=== PATIENT | male | born 1950 | race Caucasian/White ===

== ENCOUNTER → 2019-12-06 10:22 | Outpatient (BNVA) | payer MEDICARE, OTHER, SELFPAY | PROVIDERS: Referring Provider Student in an Organized Health Care Education/Training Program; Visit Provider Otolaryngology | DX: E04.1 Nontoxic single thyroid nodule (principal); F17.210 Nicotine dependence, cigarettes, uncomplicated | CPT/HCPCS: 99214 ==

== ENCOUNTER 2020-01-24 08:22 | Outpatient (CLI) | payer MEDICARE, OTHER, SELFPAY ==
[2020-01-24 09:05] LABS: INR 1.01 (0.8-1.2)
--- NOTE | 2020-01-24 10:00 | US_ITS ---
WS: [id number] INDICATION: Thyroid nodule TECHNIQUE: Ultrasound-guided right thyroid FNA FINDINGS: The procedure including risks benefits, and complications were discussed with the patient w ho agreed to proceed. Using sterile technique patient was prepped and draped in usual sterile fashion . After 1% lidocaine using ultrasound guidance 4 passes were made with active aspiration using 25-gau ge needle into the heterogeneous solid right thyroid nodule. No immediate complications. Patient left the department 30 minutes post in stable condition without evidence of hematoma on ultrasound. US/US biopsy thyroid [id number] IMPRESSION: Successful ultrasound-guided right thyroid nodule FNA
== END 2020-01-24 08:23 | disposition home or self-care (01) ==
PROVIDERS: Family Provider Student in an Organized Health Care Education/Training Program; PCP Student in an Organized Health Care Education/Training Program; Visit Provider Otolaryngology
DX: E04.1 Nontoxic single thyroid nodule (principal); Z79.82 Long term (current) use of aspirin; Z98.890 Other specified postprocedural states
CPT/HCPCS: 10005; 36415; 85610; 88173; 88305; 88307

== ENCOUNTER → 2020-06-19 08:23 | Outpatient (BNVA) | payer MEDICARE, OTHER, SELFPAY | PROVIDERS: Family Provider Student in an Organized Health Care Education/Training Program; PCP Student in an Organized Health Care Education/Training Program; Referring Provider Student in an Organized Health Care Education/Training Program; Visit Provider Specialist | DX: G56.01 Carpal tunnel syndrome, right upper limb (principal) | CPT/HCPCS: 95908 ==

== ENCOUNTER → 2020-09-07 10:07 | Outpatient (BNVA) | payer MEDICARE, OTHER, SELFPAY | PROVIDERS: Family Provider Student in an Organized Health Care Education/Training Program; PCP Student in an Organized Health Care Education/Training Program; Visit Provider Orthopaedic Surgery | DX: Z11.59 Encounter for screening for other viral diseases (principal) | CPT/HCPCS: 87635 ==

== ENCOUNTER 2020-09-13 08:21 | Day surgery (SDC) | payer MEDICARE, OTHER, SELFPAY ==
[2020-09-12 13:23] VITALS: BMI 25.0
[2020-09-13 08:37] VITALS: BP 163/84; PULSE 63; RESP 16; TEMP 36.6; O2SAT 97
[2020-09-13] MEDS: sodium chloride 0.9% 1,000 ML 30 ML IV (09:08)
--- NOTE | 2020-09-13 09:22 | ANES.PREANE2 ---
Pre-Anesthetic Assessment Pre-Anesthetic Assessment: Height/Weight: Height 1.65 m Weight 68.039 kg Temp Pulse Resp BP Pulse Ox 98 F 63 16 163/84 97 09/13/20 08:37 09/13/20 08:37 09/13/20 08:37 09/13/20 08:37 09/13/20 08:37 Preop Diagnosis: Right carpal tunnel syndrome Proposed Procedure: Operation Date: 09/13/20 10:00 Proposed Procedures p Right Carpal Tunnel Release 08457 G56.01(Right) - Dre Meneses MD Last intake: Intake Last Liquid Date 09/12/20 Last Liquid Time 20:30 Last Solid Date 09/12/20 Last Solid Time 18:30 Social: Social History: No alcohol and No tobacco Exam: Pre-Anes Outpt Exam: alert, oriented x 3, clear to auscultation bilaterally and regular rate & rhythm Airway: Submandibular: WNL Cervical ROM: WNL MP: 2 Pulmonary: Pulmonary: COPD CV/HEM: CV/HEM: CAD : : None reported Hepatic: Hepatic: None reported GI: GI: GERD Metabolic: Metabolic: None reported Musc/skel: Musc/skel: OA/DJD Neuropsych: Neuropsych: None reported Anesthetic Plan: ASA status: 3 Anesthesia: Eval. for regional block and MAC Meds/Allergies Current Medications: Current Medications Generic Name Dose Route Start Last Admin Trade Name Freq PRN Reason Stop Dose Admin Sodium Chloride 1,000 mls @ 30 ml s/hr 09/13/20 08:45 09/13/20 09:08 Sodium Chloride 0.9% IV 09/14/20 08:44 30 mls/hr .Q24H ELEAZAR Administration PFSH Anesthesia PFSH: Social History Smoking and tobacco status: current every day smoker Alcohol intake: never History of recent travel: No Data Anesthesia Cardiac Studies: No Data to Display
--- NOTE | 2020-09-13 09:48 | W.PM.OPSUD ---
Surgery/Procedure H&P Update DATE OF PROCEDURE: September 13, 2020 DATE H&P PERFORMED: 08/28/20 PREOP DIAGNOSIS: Right carpal tunnel syndrome PLANNED PROCEDURE: Operation Date: 09/13/20 10:00 Proposed Procedures p Right Carpal Tunnel Release [id number] G56.01(Right) - Dre Meneses MD
--- NOTE | 2020-09-13 10:42 | P.OP_ITS ---
Operative Report Date of procedure: September 13, 2020 Pre-op Diagnosis: Right carpal tunnel syndrome Post-op diagnosis: same Post-op Findings: Same Procedure Done: Right carpal tunnel release Pathology: none sent Surgeon: Dre Meneses Anesthesia: Nerve Block (Leona block) Estimated blood loss (mL): 5 Tourniquet time (min): 20 Condition: stable Disposition: PACU Procedure: Patient was taken to the operating room and anesthesia provided by the anesthesia service. She was prepped and draped with the arm exposed. A timeout was performed. A 3 cm long incision was made in line with the fourth ray from the distal edge of the carpal tunnel extending proximally. The subcutaneous fat and palmar fascia was divided with a scalpel blade. Under loupe magnification the ulnar neurovascular bundle was identified distally. A hemostat could be passed under the transverse carpal ligament allowing the distal 25% to be divided. A slotted guide was then passed beneath the transv erse carpal ligament and the middle 50% divided. Blunt scissors were then passed over the guide freeing the proximal ligament. The tourniquet was deflated. Hemostasis provided with electrocautery. Wound edges were infiltrated with 10 cc of a half percent Marcaine solution. Skin edges were reapproximated with 3-0 Prolene. Sterile dressings were applied. The patient was taken to the recovery room in stable condition
[2020-09-13 10:44] VITALS: BP 161/80; PULSE 55; RESP 16; TEMP 35.9; O2SAT 100
[2020-09-13 10:59] VITALS: BP 128/54; PULSE 54; RESP 16; O2SAT 99
--- NOTE | 2020-09-13 20:15 | ANE.PACU2 ---
Inpatient post-anesthesia follow up: Airway intact: Yes Vital signs: Temperature 96.6 F Pulse Rate 54 Respiratory Rate 16 Blood Pressure 128/54 Pulse Oximetry 99 Oxygen Delivery Me thod Room Air Oxygen Flow Rate Fraction of Inspir ed Oxygen Hydration adequate: Yes Nausea and vomiting: No Pain level: 1 Mental status: Baseline
== END 2020-09-13 11:17 | disposition home or self-care (01) ==
PROVIDERS: PCP Student in an Organized Health Care Education/Training Program; Visit Provider Orthopaedic Surgery
PROC: (CPT 64721; principal; 2020-09-13 09:50)
DX: G56.01 Carpal tunnel syndrome, right upper limb (principal); F17.200 Nicotine dependence, unspecified, uncomplicated
CPT/HCPCS: 64721; 12345; J0690; J2250; J2704; J3490; J7030